=== PATIENT | male | born 1960 | race Caucasian/White ===

== ENCOUNTER 2017-02-12 10:40 | Outpatient (CLI) | payer BC ==
--- NOTE | 2017-02-12 12:31 | RAD ---
PA AND LATERAL CHEST X-RAY: 02/12/2017 HISTORY: Dyspnea. COMPARISON: 06/07/2016 FINDINGS: The cardiac fat pad is seen at the left lung base. The cardiac silhouette and pulmonary vasculature are within normal limits. The lungs are clear. There is stable eventration of the anterior right he midiaphragm, with stable, slight blunting of the left lateral costophrenic angle, which could be rela ania to a very small left pleural effusion or pleural and parenchymal scarring. IMPRESSION: 1. No acute cardiopulmonary process. 2. Stable blunting of the left lateral costophrenic angle, which may be related to either small left pleural effusion or pleural and parenchymal scarring. POS: [facility]
== END 2017-02-12 10:41 | disposition home or self-care (01) ==
LOC: RAD 10:40
PROVIDERS: ATTEND Internal Medicine
DX: R06.00 Dyspnea, unspecified (principal)
CPT/HCPCS: 71020

== ENCOUNTER 2017-07-10 11:29 | Day surgery (SDC) | payer BC, OTHER ==
[2017-07-10] MEDS ORDERED: Bupivacaine 0.5% 10 ML VIAL ONE (11:36)
--- NOTE | 2017-07-10 12:23 | RAD ---
RIGHT FINGER 3 VIEWS: Date: 07/10/17 HISTORY: 56-year-old male with history of injury of right thumb after being pinched between a telephone pole a nd a metal chain link. FINDINGS: Three views of the thumb demonstrate extensive soft tissue injury to the distal thumb. There appears to be exposure of the distal tuft of the distal phalanx. No evidence for overt acute fracture. No sig nificant evidence for foreign body. There are degenerative changes. IMPRESSION: Soft tissue avulsion injury of the thumb with what appears to be exposed distal phalanx, without over t acute fracture. Generalized degenerative changes. POS: [facility]
[2017-07-10] MEDS ORDERED: Gentamicin Sulfate 80 MG in Premix Bag 1 BAG IVPB SCH (14:45)
[2017-07-10] MEDS ORDERED: Fentanyl 100 MCG/2 ML VIAL ONE (14:53)
[2017-07-10] MEDS ORDERED: Bacitracin Zinc Ointment 30 gm TUBE ONE (14:54)
[2017-07-10] MEDS ORDERED: Bupivacaine PF 0.5% 30 ML VIAL ONE (14:54)
[2017-07-10] MEDS ORDERED: Thrombin 5000 UNITS/5 ML VIAL ONE (14:54)
[2017-07-10] MEDS ORDERED: Sodium Chloride 0.9% 10 ML ONE ×2 (14:59→15:57)
[2017-07-10] MEDS ORDERED: Penicillin G Potassium 3 MILL.UNITS in Sodium Chloride 0.9% 50 ML IVPB SCH (15:00)
[2017-07-10] MEDS ORDERED: Lidocaine 1% PF 5 ML VIAL ONE (16:50)
[2017-07-10] MEDS ORDERED: ePHEDrine/0.9% NaCl/PF SYRINGE 50 mg/10 ml ONE (16:50)
[2017-07-10] MEDS ORDERED: Succinylcholine Chloride 20 MG/ML 10 ml SYRINGE FS ONE (16:50)
[2017-07-10] MEDS ORDERED: PROPOFOL 200 MG/20 ML VIAL ONE (16:50)
[2017-07-10] MEDS ORDERED: PHENYLEPHRINE-NS 100 MCG/ML 10 ML SYRINGE ONE (16:50)
--- NOTE | 2017-07-12 07:26 | OP ---
DATE OF PROCEDURE: 07/10/2017 PREOPERATIVE DIAGNOSES: 1. Right thumb complex wound. 2. Right thumb nail bed laceration. 3. Right thumb distal ____ open fracture. 4. All secondary to injury at work. POSTOPERATIVE DIAGNOSES: 1. Right thumb complex wound. 2. Right thumb nail bed laceration. 3. Right thumb distal ____ open fracture. 4. All secondary to injury at work. PROCEDURE: 1. Debridement of wound, distal phalanx. 2. Debridement of bone and material associated open fracture, distal phalanx. 3. Debridement of nail bed open distal phalanx. 4. Repair of nail bed. 5. Open treatment open fracture, distal phalanx. 6. Full-thickness skin graft harvested from the ipsilateral forearm for wound closure completion. ESTIMATED BLOOD LOSS: 20 mL. SURGEON: Clyde Oliva M.D. TOURNIQUET TIME: None. NOTE: The patient had brought in an amputated part which was oblique primarily took almost all skin, 3 mm of the nail bed and 3 mm of bone. Only partially a 1 mm wide, 1 mm of rim of bone was exposed and we covered this with fat to allow skin grafting. DESCRIPTION OF PROCEDURE: After successful general endotracheal anesthesia, the limb was prepped and draped. Timeout done appropriately. The wound then was evaluated, we then began standard debrideme nt first of bone using a rongeur and then began open treatment of the distal phalanx fracture which h ad some fragments and soft tissue we dissected out under magnification using a [facility] blade. Then once we done the instrumentation using meticulous above, we finished a depth down to and includi ng the bone and then began to debride and materials of the open fracture which were a few small fragm ents of dark material which were removed directly with pickups, tenotomy scissors and a curet. Fish curet and bone and now the bone was debrided back to 1 mm rim back 1 mm, so it was flush with the sof t tissue level. We then irrigated with 3 liters normal saline and Pulsavac pressure, obtained hemostasis, we then pul led some fat up over the bone to the level of the nail bed, had to do a small repair of the nailbed w ith some chromic suture and then we had all bone coverage without any nail material protruding distal ly. We then measured the size of the wound, harvested appropriate 3 cm long by 8 mm wide piece of skin to cover the defect, defatted it, and then split it in half because of the width and length of this wou nd. We then attached it using a running chromic to both the nail bed and the skin, then used a 3-0 n ylon to create a bolster with normal saline and bacitracin and Adaptic placed directly on the graft a nd the nail bed and then a bolster of mineral oil with 1 cotton ball tied with a 3-0 nylon in 4 quadr ants. The patient had excellent adaptation of the skin graft and coverage of the skin graft onto the base with no exposed bone. We placed a bulky dressing. The patient left the operating room without evidence of anesthetic or complication.
== END 2017-07-10 19:04 | disposition admitted as inpatient to this hospital (09) ==
LOC: ERS 11:29 → SDC 14:02 → ERS 18:50 → SDC 19:04
PROVIDERS: ATTEND Orthopaedic Surgery Hand Surgery
PROC: 0PSR04Z Reposition Right Thumb Phalanx with Internal Fixation Device, Open Approach (ICD-10-PCS; principal; 2017-07-10)
PROC: 0HRFX73 Replacement of Right Hand Skin with Autologous Tissue Substitute, Full Thickness, External Approach (ICD-10-PCS; principal; 2017-07-10)
PROC: 0PBR0ZZ Excision of Right Thumb Phalanx, Open Approach (ICD-10-PCS; principal; 2017-07-10)
PROC: 0KX Muscles, Transfer (ICD-10-PCS; principal; 2017-07-10)
DX: S68.011A Complete traumatic metacarpophalangeal amputation of right thumb, initial encounter (principal); S67.01XA Crushing injury of right thumb, initial encounter; E78.5 Hyperlipidemia, unspecified; I10 Essential (primary) hypertension; Z79.899 Other long term (current) drug therapy; W23.0XXA Caught, crushed, jammed, or pinched between moving objects, initial encounter
CPT/HCPCS: 96361; 96372; 96374; A4216; J1580; J2001; J2540; J2704; J3010; J3490; J7050; S0020

== ENCOUNTER 2018-02-11 09:40 | Outpatient (CLI) | payer BC ==
--- NOTE | 2018-02-11 11:54 | RAD ---
TWO VIEW CHEST: INDICATION: Dyspnea. COMPARISON: 02/12/2017. FINDINGS: The cardiac silhouette remains enlarged. There is no new consolidation, effusion, or discrete pneumo thorax. IMPRESSION: Stable chest. POS: [facility]
== END 2018-02-11 09:41 | disposition home or self-care (01) ==
LOC: RAD 09:40
PROVIDERS: ATTEND Internal Medicine
DX: R06.00 Dyspnea, unspecified (principal)
CPT/HCPCS: 71046